=== PATIENT | female | born 1960 | race Caucasian/White ===

== ENCOUNTER 2018-07-16 22:26 | Emergency (ER) | payer OTHER ==
[2018-07-17] MEDS: ERYTHROMYCIN 1 GM OPH OINT LEFT EYE (01:01)
[2018-07-17 01:16] LABS: ADD MAN DIFF? NO
[2018-07-17 01:17] LABS: WHITE BLOOD COUNT 8.1 10^3/ul (4.8-10.8)
[2018-07-17 01:17] LABS: BASOPHILS % 0.5 % (0.0-2.0); EOSINOPHILS # 0.2 10^3/ul (0.0-0.5); EOSINOPHILS % 2.5 % (0.0-7.0); HEMATOCRIT 29.9 % (37.0-47.0); HEMOGLOBIN 9.5 g/dl (12.0-16.0); LYMPHOCYTES # 2.2 10^3/ul (0.8-2.9); LYMPHOCYTES % 27.3 % (15.0-51.0); MEAN CORPUSCULAR HGB CONC 31.8 g/dl (32.0-37.0); MEAN CORPUSCULAR VOLUME 84.9 fl (82.0-101.0); MEAN PLATELET VOLUME 9.4 fl (7.4-10.4); MONOCYTE # 0.6 10^3/ul (0.3-0.9); MONOCYTES % 7.9 % (0.0-11.0); NEUTROPHIL # 4.9 10^3/ul (1.6-7.5); NEUTROPHILS % 60.9 % (39.0-77.0); PLATELET COUNT 258 10^3/UL (140-415); RED BLOOD COUNT 3.52 10^6/ul (4.20-5.40); RED CELL DISTRIBUTION WIDTH 15.9 % (11.5-14.5)
[2018-07-17 01:37] LABS: ANION GAP 12 (5-13); BLOOD UREA NITROGEN 46 mg/dl (7-20); CALCIUM 9.5 mg/dl (8.4-10.2); CARBON DIOXIDE 22 mmol/L (21-31); CHLORIDE 109 mmol/L (97-110); CREATININE 1.59 mg/dl (0.44-1.00); Estimated GFR 33 mL/min (>60); GLUCOSE 136 mg/dl (70-220); POTASSIUM 5.3 mmol/L (3.5-5.1); SODIUM 143 mmol/L (135-144)
[2018-07-17 01:49] LABS: B-TYPE NATRIURETIC PEPTIDE 1820 PG/ML (0-125); TROPONIN-I < 0.012 ng/ml (0.000-0.120)
[2018-07-17] MEDS ORDERED: TETRAHYDROZOLINE 0.05% 15 ML OPH LEFT EYE (02:30)
[2018-07-17] MEDS: TETRACAINE 0.5% 4 ML OPH LEFT EYE (02:50)
[2018-07-17] MEDS: FLUORESCEIN STRIP LEFT EYE (02:50)
== END 2018-07-17 03:27 | disposition home or self-care (01) ==
LOC: FTE 22:26
DX: T52.8X1A Toxic effect of other organic solvents, accidental (unintentional), initial encounter (principal); R60.0 Localized edema; I10 Essential (primary) hypertension; E11.9 Type 2 diabetes mellitus without complications
CPT/HCPCS: 36415; 71045; 80048; 83880; 84484; 85025; 93005; 99285-25